=== PATIENT | male | born 1965 | race Caucasian/White ===

== ENCOUNTER 2017-06-21 20:02 | Emergency (ER) | payer OTHER ==
[2017-06-21 21:29] VITALS: BP 130/76
--- NOTE | 2017-06-21 22:04 | UC ---
Respiratory Complaint HPI - HPI Summary HPI Summary: 4 DAYS OF COUGH, CONGESTION, DRAINAGE AND HOARSENESS. HAD ST INITIALLY THAT IS NOW RESOLVED. YESTERDAY HAD A COUGHING FIT AND FELT SHORT OF BREATH. THINKS HE HAD AN APNEIC EPISODE WHICH HE STATES RUNS IN HIS FAMILY. IS EXTREMELY ANXIOUS. FEELS SORE WITH OVERALL MALAISE. NO FLU SHOT THIS SEASON. - History of Current Complaint Chief Complaint: UCRespiratory Stated Complaint: SORE THROAT Time Seen by Provider: 06/21/17 21:26 Hx Obtained From: Patient Onset/Duration: Gradual Onset, Lasting Days, Still Present Timing: Constant Severity Initially: Moderate Severity Currently: Moderate Pain Intensity: 0 Pain Scale Used: 0-10 Numeric Character: Cough: Productive Aggravating Factors: Nothing Alleviating Factors: Nothing Associated Signs And Symptoms: Positive: Dyspnea, Fever, URI, Nasal Congestion, Hoarseness. Negative: Wheezing - Allergies/Home Medications Allergies/Adverse Reactions: Allergies Allergy/AdvReac Type Severity Reaction Status Date / Time No Known Allergies Allergy Verified 06/21/17 21:17 Home Medications: Home Medications Omeprazole [Prilosec] 20 mg PO DAILY 06/21/17 [History Confirmed 06/21/17] Pseudoephedrine HCl [Sudafed Congestion] 30 mg PO PRN 06/21/17 [History] PMH/Surg Hx/FS Hx/Imm Hx - Additional Past Medical History Additional PMH: ALLERGIES - Surgical History Surgical History: Yes Surgery Procedure, Year, and Place: inguinal hernia repair 2011 - Family History Known Family History: Positive: Hypertension - Social History Alcohol Use: Occasionally Substance Use Type: None Smoking Status (MU): Never Smoked Tobacco Review of Systems Constitutional: Fever ENT: Sore Throat, Nasal Discharge Respiratory: Shortness Of Breath, Cough Cardiovascular: Negative Gastrointestinal: Negative Psychological: Anxious All Other Systems Reviewed And Are Negative: Yes Physical Exam Triage Information Reviewed: Yes Appearance: Well-Appearing, No Pain Distress, Well-Nourished Vital Signs: Initial Vital Signs Temp 99.7 F 06/21/17 21:19 Pulse 87 06/21/17 21:19 Resp 29 06/21/17 21:19 BP 130/76 06/21/17 21:19 Pulse Ox 100 06/21/17 21:19 Vital Signs Reviewed: Yes Eyes: Positive: Conjunctiva Clear ENT: Positive: Hearing grossly normal, Pharynx normal, TMs normal Neck: Positive: Supple, Nontender, No Lymphadenopathy Respiratory Exam: Normal Cardiovascular Exam: Normal Abdomen Description: Positive: Soft Musculoskeletal: Positive: No Edema Neurological: Positive: Alert Psychological: Positive: Age Appropriate Behavior, Other: - ANXIOUS Skin: Negative: rashes UC Diagnostic Evaluation - Laboratory O2 Sat by Pulse Oximetry: 100 Diagnostic Studies Comment: FLU SWAB NEGATIVE Respiratory Course/Dx - Differential Dx/Diagnosis Provider Diagnoses: ACUTE URI Discharge - Discharge Plan Condition: Stable Disposition: HOME Prescriptions: Azithromycin [Azithromycin 500 MG TAB] 500 mg PO DAILY #5 tab Guaifenesin-Codeine [Codeine/Guaifenesin 100-10 mg/5Ml] 5 - 10 ml PO Q6H PRN # 150 ml MDD 40ML PRN Reason: Cough Patient Education Materials: Upper Respiratory Infection (ED) Referrals: No Primary Care Phys,NOPCP [Primary Care Provider] - Additional Instructions: FLU TEST NEGATIVE. YOUR SYMPTOMS ARE LIKELY VIRALLY MEDIATED AND SHOULD RESOLVE ON THEIR OWN WITH TIME. REST, HYDRATE, OTC MEDS NEEDED. WILL TREAT WITH COUGH MEDICINE. IF YOUR SYMPTOMS ARE NOT IMPROVING OVER THE NEXT 3-5 DAYS GO AHEAD AND FILL RX FOR ANTIBIOTIC. SEEK FOLLOW-UP IF YOU ARE NOT IMPROVING OVER THE NEXT 1-2 WEEKS. CALL THE NUMBER BELOW FOR ASSISTANCE IN ESTABLISHING WITH A PCP An additional resource available to assist in finding the appropriate physician for your health care needs is [facility] ([facility]). You may contact them by calling [phone].
[2017-06-21] MEDS ORDERED: guaiFENesin/CODIEN 100MG-10MG* 5 ML UDC PO ONE (22:45)
== END 2017-06-21 23:00 | disposition home or self-care (01) ==
LOC: UCEAST 20:02
DX: J06.9 Acute upper respiratory infection, unspecified (principal)
CPT/HCPCS: 87502; 99202; A9270-GY; G0463